=== PATIENT | female | born 1975 | race Caucasian/White ===

== ENCOUNTER 2024-12-14 12:40 | Emergency (ER) | payer SELFPAY ==
[2024-12-14 12:46] VITALS: BP 122/92; PULSE 114; TEMP 37; O2SAT 98; BMI 26.6
--- OUTSIDE RECORDS SUMMARY | 2024-12-14 13:09 | XMS_ITS | Patient Health Record ---
Author Organization [facility] [place] Address [address] [place] [address] Support Name Relationship Address Phone NONE GIVEN Emergency Contact Unknown Unavailabl e Reason For Referral No Information Plan Of Treatment No Information Insurance Providers Payer Name Payer Address Payer Phone Subscriber Number Group Number Insured Name Patient Relationship to Insured Coverage Start Date Coverage End Date [employer] [place] MEDICA[employer] [address] [place], [place] [id number] ELZA CONTRERAS Self - patient is the insured 5
--- OUTSIDE RECORDS SUMMARY | 2024-12-14 13:09 | XMS_ITS | Clinical Summary ---
Author Organization [facility] Address [address] [place] [address] Care Team Providers Care Manager Systems Name Role Phone Unavailable Primary Care Provider Unavailabl e Social History Tobacco Use Types Packs/Day Years Used Date Smoking Tobacco: Never Assessed Comments Unknown Sex and Gender Information Value Date Recorded Sex Assigned at Not on file Legal Sex Female 6:50 PM EDT Gender Identity Not on file Sexual Orientation Not on file Last Filed Vital Signs Vital Sign Reading Time Taken Comments Blood Pressure - - Pulse - - Temperature - - Respiratory Rate - - Oxygen Saturation - - Inhaled Oxygen Concentration - - Weight 85.3 kg (188 lb) 04/19/2022 12:00 PM EST Height 177.8 cm (5' 10 ) 04/19/2022 12:00 PM EST Body Mass Index 26.98 04/19/2022 12:00 PM EST Plan of Treatment Not on file
--- OUTSIDE RECORDS SUMMARY | 2024-12-14 13:09 | XMS_ITS | Clinical Summary ---
Author Organization [place] Address [id number] [address] [place] [address] Care Team Providers Care Carpet Journeyman Name Role Phone Sonido Dunn MD Primary Care Provider [phone] Allergies Active Allergy Reactions Criticality Noted Date Comments Prochlorperazine Itching,GI Disturbance 017 Increase in heart rate, extreme anxiety. Medications vilazodone (VIIBRYD) 10 mg tablet Daily 10/21/2023 Active prazosin (MINIPRESS) 1 mg capsule Daily at bedtime 10/21/2023 Active Active Problems Problem Noted Date Diagnosed Date Leg swelling 06/15/2023 Smoker 06/15/2023 Cellulitis of left lower extremity 06/15/2023 Acute intractable headache 04/09/2018 Immunizations Immunization Administration Dates Next Due Tdap 11/04/2023,03/22/2017 Family History Medical History Relation Name Comments Cancer Mother Coronary artery disease Mother Diabetes Mother Stroke Mother Relation Name Status Comments Father Mother Alive Social History Tobacco Use Types Packs/Day Years Used Date Smoking Tobacco: Every Day Cigarettes 0.5 28 Smokeless Tobacco: Never Tobacco Cessation:Ready to Q uit: Not Asked; Counseling Given: Not Answered Alcohol Use Standard Drinks/Week Comments No 0 (1 standard drink = 0.6 oz pur e alcohol) [facility] Utilities Answer Date Recorded In the past 12 months has th e electric, gas, oil, or water company threatened to shut off services in your home? No 06/15/2023 PRAPARE - Transportation Answer Date Re corded In the past 12 months, has l ack of transportation kept you from medical appointments or from getting medications? No 04/0 07/2023 In the past 12 months, has l ack of transportation kept you from meetings, work, or from getting things needed for daily living? No 06/15/2023 Housing Instability Answer Date Recorde d Are you worried or concerned that in the next two months you may not have stable housing that you own, rent or stay in as a part of a household? No 06/15/2023 Childcare Answer Date Recorded Childcare Unknown 08/21/2018 Employment Answer Date Recorded Employment Unknown 08/21/2018 Hunger Screening Answer Date Recorded Within the past 12 months we worried whether our food would run out before we got money to buy more. Never True 11/04/2023 Within the past 12 months th e food we bought just didn't last and we didn't have money to get more. Never True 11/04/2023 Purpose - Life Answer Date Recorded Purpose and direction in life Unknown Comments No Sex and Gender Information Value Date Recorded Sex Assigned at Not on file Legal Sex Female 11:41 AM EDT Gender Identity Not on file Sexual Orientation Not on file Last Filed Vital Signs Vital Sign Reading Time Taken Comments Blood Pressure 136/87 11/04/2023 12:43 AM EDT Pulse 71 11/04/2023 12:43 AM EDT Temperature 37.3 C (99.1 F) 11/04/2023 12:43 AM EDT Respiratory Rate 20 11/04/2023 12:43 AM EDT Oxygen Saturation 99% 11/04/2023 12:43 AM EDT Inhaled Oxygen Concentration - - Weight 97.5 kg (215 lb) 11/04/2023 12:43 AM EDT Height 177.8 cm (5' 10 ) 11/04/2023 12:43 AM EDT Body Mass Index 30.85 11/04/2023 12:43 AM EDT Plan of Treatment Health Maintenance Due Date Last Done Comments Depression Screening 1989 Adult BMI Screening 11/03/2024 11/04/2023 Tobacco Screening 11/03/2024 11/04/2023 Influenza Vaccine 11/10/2024 12/16/2014 DTaP,Tdap and Td Vaccines (4 - Td or Tdap) 11/03/2033 11/04/2023, 04/19/2020, 03/22/2017 Goals Goal Patient Goal Type Associated Problems Recent Progress Patient-Stated? Author home General Yes Estrella Ryder LSW Note: Evaluation of progress towards goal: feeling better Medical Devices Not on file Insurance [employer] [facility] [employer] Advance Directives * Full Code (Latest Code Status on File) Date Activated Date Inactivated Comments 06/15/2023 6:08 AM 06/16/2023 2:27 PM * Full Code Date Activated Date Inactivated Comments 04/09/2018 5:58 PM 04/10/2018 5:25 PM Care Teams Carpet Journeyman Relationship Specialty Start Date End Date Sonido Dunn MD [facility] [place] [address] PCP - General Family Medicine 11/04/23
--- OUTSIDE RECORDS SUMMARY | 2024-12-14 13:09 | XMS_ITS | Patient Health Record ---
Author Organization [facility] Address [address] [place] [address] Care Team Providers Care Band Edger Name Role Phone Sonido Dunn Primary Care Provider Allergies Allergen (clinical drug ingredient) Drug/Non Drug Allergy documented on EMR Reaction Allergy Type Onset Date Status Compazine rash Drug Allergy Active Reason For Referral No Information Social History Tobacco Use: Social History Observation Description Date Details (start date - stop date) Current Smoker NA - NA Sexual Hx: Question Answer Notes Had sex in the last 12 months (vaginal, oral, or anal)? No Have you ever had an STD? No AUDIT-C (Standard) Question Answer Notes Did you have a drink containing alcohol in the p ast year? No Points 0 Interpretation Negative Tobacco Control (Standard) Question Answer Notes Tobacco use: Current smoker How often do you smoke cigarettes? Some days, bu t not every day How many cigarettes a day do you smoke? 6-10 Are you interested in quitting? Thinking about q uitting Encounters Encounter Location Date Provider Diagnosis [facility] [address] [place] [address] 07/17/2024 Sonido Dunn [facility] [address] [place] [address] 11/18/2024 Sonido Dunn Plan Of Treatment Pending Test Test Name Order Date MM screening mammo BI w/CAD 08/21/2023 Cologuard 08/21/2023 Insurance Providers Payer Name Payer Address Payer Phone Subscriber Number Group Number Insured Name Patient Relationship to Insured Coverage Start Date Coverage End Date [employer] [place] Medicaid [address] [place] [address] [id number] ELZA CONTRERAS Self - patient is the insured 3 [employer] [address] [place] [address] [id number] ELZA CONTRERAS Self - patient is the insured 3 Medical (General) History Medical History History ICD Code 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
--- OUTSIDE RECORDS SUMMARY | 2024-12-14 13:09 | XMS_ITS | Encounter Summary ---
Author Organization [facility] Address [address] [place] [address] Care Team Providers Care Industrial Eng Name Role Phone Pcp, No Primary Care Provider Unavailabl e Pcp, No Primary Care Provider Unavailabl e Source Comments In the event this information is protected by the Federal Confidentiality of Alcohol and Drug AbusePatient Records regulations: The Federal rules restrict any use of the information to criminally investigate or prosecute any alcohol or drug abuse patient.[facility] Encounter Details Date Type Department Care Team (Late st Contact Info) Description 04/07/2013 [facility] [address] [place] [address] Alfonso Ornelas, PA-C [address] [place] [address] Social History Tobacco Use Types Packs/Day Years Used Date Smoking Tobacco: Every Day Cigarettes Alcohol Use Standard Drinks/Week Comments Not Asked 0 (1 standard drink = 0.6 oz pur e alcohol) Comments No Sex and Gender Information Value Date Recorded Sex Assigned at Not on file Legal Sex Female 8:12 AM EST Gender Identity Not on file Sexual Orientation Not on file documented as of this encounter Plan of Treatment Not on file documented as of this encounter Visit Diagnoses Not on filedocumented in this encounter Care Teams Industrial Eng Relationship Specialty Start Date End Date Pcp, No PCP - General 03/03/13 10/09/13 Pcp, No PCP - General Family Medicine 07/10/14 02/08/15 documented as of this encounter
--- OUTSIDE RECORDS SUMMARY | 2024-12-14 13:09 | XMS_ITS | Clinical Summary ---
Author Organization [facility] Address [address], [address] [place] [address] Care Team Providers Care Card Writer Hand Name Role Phone Unavailable Primary Care Provider Unavailabl e Allergies Active Allergy Reactions Criticality Noted Date Comments Prochlorperazine 04/19/2020 Medications acetaminophen (TYLENOL) 325 MG tablet Take 2 tablets by mouth every 6 hours as needed for Pain 30 tablet 04/19/2020 Active ibuprofen (ADVIL;MOTRIN) 600 MG tablet Take 1 tablet by mouth every 6 hours as needed for Pain 30 tablet 04/19/2020 Active Immunizations Immunization Administration Dates Next Due TDaP, ADACEL (age 10y-64y), BOOSTRIX (age 10y+), IM, 0.5mL 04/19/2020 Social History Tobacco Use Types Packs/Day Years Used Date Smoking Tobacco: Never Assessed Interpersonal Safety Domain Source: IP Abuse Scr eening Answer Date Recorded Physical abuse Denies 08/22/2024 Verbal abuse Denies 08/22/2024 Emotional abuse Denies 08/22/2024 Financial abuse Denies 08/22/2024 Sexual abuse Denies 08/22/2024 Comments Unknown Sex and Gender Information Value Date Recorded Sex Assigned at Not on file Legal Sex Female 3:01 PM EST Gender Identity Not on file Sexual Orientation Not on file Last Filed Vital Signs Vital Sign Reading Time Taken Comments Blood Pressure 117/77 08/22/2024 6:37 PM EDT Pulse 67 08/22/2024 6:37 PM EDT Temperature 36.9 C (98.4 F) 08/22/2024 6:37 PM EDT Respiratory Rate 16 08/22/2024 6:37 PM EDT Oxygen Saturation 100% 08/22/2024 6:37 PM EDT Inhaled Oxygen Concentration - - Weight 97.2 kg (214 lb 4.6 oz) 08/22/2024 6:37 P M EDT Height 180.3 cm (5' 11 ) 04/19/2020 3:11 PM EST Body Mass Index 29.89 04/19/2020 3:11 PM EST Plan of Treatment Health Maintenance Due Date Last Done Comments Depression Screen 1989 HIV screen 1992 Hepatitis C screen 09/18/1995 Hepatitis B vaccine (1 of 3 - 19+ 3-dose series) 1996 Pap smear 1998 Cervical cancer screen 09/18/2007 HPV (without or with Pap) 09/18/2007 Breast cancer screen 2017 Lipids 2017 Colonoscopy 2022 Colorectal Cancer Screen 2022 FIT/FOBT: Average risk 2022 Fecal-DNA (Cologuard): Pheba ge risk 2022 Sigmoidoscopy/CT colonography 2022 Flu vaccine (#1) 10/10/2024 12/16/2014 COVID-19 Vaccine (1 - 2023-2 5 season) 2024 DTaP/Tdap/Td vaccine (4 - Td or Tdap) 11/03/2033 11/04/2023, 04/19/2020, 03/22/2017 Hepatitis A vaccine Aged Out No longe r eligible based on patient's age to complete this topic Hib vaccine Aged Out No longer eligi ble based on patient's age to complete this topic Meningococcal (ACWY) vaccine Aged Out No longer eligible based on patient's age to complete this topic Meningococcal B vaccine Aged Out No l onger eligible based on patient's age to complete this topic Pneumococcal 0-49 years Vaccine Aged Out No longer eligible b ased on patient's age to complete this topic Polio vaccine Aged Out No longer elig ible based on patient's age to complete this topic Insurance [employer] [facility] Member Subscriber Plan / Payer (Ef fective 2019-Present) Name:Sissy Gallego Relation to Subscriber:Self Name:Sissy Gallego Payer ID:Not on file Group ID:Not on file Type:Indemnity Address: [address] MEDICAID
[2024-12-14 13:57] LABS: Hematocrit 46.8 % (36.0-48.0); Hemoglobin 15.4 g/dL (12.0-16.0); Immature Granulocytes Abs Auto 0.03 10^3/uL (0.00-0.03); Immature Granulocytes Pct Auto 0.3 % (0.0-0.5); Lymphocytes Absolute Auto 0.7 10^3/uL (1.2-3.8); Mean Corpuscular HGB Conc 32.9 g/dL (29.9-35.2); Mean Corpuscular Hemoglobin 30.7 pg (26.7-34.0); Mean Corpuscular Volume 93.4 fL (81.0-99.0); Platelet Count 228 10^3/uL (150-450); Red Blood Count 5.01 10^6/uL (4.20-5.40); White Blood Count 9.1 10^3/uL (4.0-11.0)
--- NOTE | 2024-12-14 14:04 | CT_ITS ---
The [address] [address] Patient Name: ELZA CONTRERAS MRN: [id number] date: 1975 Sex: F Assigned Patient Location: ER Current Patient Location: ER Accession/Order Number: [id number] Exam Date: 12/14/2024 14:20 Report Date: 12/14/2024 15:06 At the request of: ANAYA DALLAS MD Procedure: CT facial bones wo con MAXILLOFACIAL CT WITHOUT CONTRAST: CLINICAL HISTORY: left mandible swelling COMPARISON: None TECHNIQUE: Spiral axial unenhanced images were obtained through the facial bones. Coronal and sagittal reconstructions were also reviewed. This CT exam was performed using one or more following dose reduction techniques: Automated exposure control, adjustment of the mA and/or kV according to patient size, or use of iterative reconstruction technique. FINDINGS: No nasal bone fracture. Zygomatic arches and pterygoid plates appear intact. Maxilla appears intact. Mandible is intact. No orbital fracture. Intraorbital contents appears unremarkable. Soft tissue swelling involving the left mandibular region. There is associated adjacent presumed reactive lymph nodes. No fluid collection to suggest abscess. Nasopharynx appears unremarkable. CT/CT facial bones wo con IMPRESSION: SOFT TISSUE SWELLING INVOLVING THE LEFT MANDIBULAR REGION WITH ADJACENT PRESUMED REACTIVE LYMPH NODES. NO FLUID COLLECTION TO SUGGEST ABSCESS. NO ACUTE BONY PROCESS. Impression dictated by: Elias Martell Jr., D.O. 12/14/2024 3:06 PM Dictation Location: [place] [address] Electronically authenticated by: [id number] Y Date: 12/14/2024 15:06
[2024-12-14 14:12] LABS: Alanine Aminotransferase 15 U/L (14-59); Albumin Globulin Ratio 0.7; Albumin Level 3.2 g/dL (3.4-5.0); Alkaline Phosphatase 134 U/L (46-116); Anion Gap 10.1; Aspartate Amino Transferase 21 U/L (15-37); Blood Urea Nitrogen 7.0 mg/dL (7.0-18.0); Calcium 8.9 mg/dL (8.5-10.1); Carbon Dioxide 30.1 mmol/L (21.0-32.0); Chloride 102 mmol/L (98-107); Estimated GFR (African America >60 (>=60 mL/min/1.73m^2); Estimated GFR (Non-African Ame >60 (>=60 mL/min/1.73m^2); Globulin 4.4 g/dL; Glucose 113 mg/dL (74-106); Potassium 4.2 mmol/L (3.5-5.1); Sodium 138 mmol/L (136-145); Total Protein 7.6 g/dL (6.4-8.2)
--- NOTE | 2024-12-14 15:24 | ED.GENADUL1 ---
HPI HPI - General Adult General Chief complaint: Skin/Abscess/Foreign Body Stated complaint: L FACIAL PAIN & SWELLING Time Seen by Provider: 12/14/24 13:11 Source: patient Mode of arrival: walk-in Limitations: no limitations History of Present Illness HPI narrative: Patient have a left lower dental pain as well as swelling of the face that developed over the last 24 hours, initially started with pain in the left lower mandible then the swelling she noted this morning, no difficulty breathing no other concern but the patient have a significant swelling in the left side of the face Related Data Previous Rx's ?Medication ?Instructions ?Recorded amoxicillin 875 mg-potassium 1 tab PO Q12H #20 tabs 12/14/24 clavulanate 125 mg tablet naproxen 375 mg tablet 375 mg PO BID PRN pain #20 tabs 12/14/24 Allergies Allergy/AdvReac Type Severity Reaction Status Date / Time prochlorperazine (From Allergy Mild Rash Verified 12/14/24 12:46 Compazine) Opioid HPI Opioid Management Most Recent Opioid Data: Last Pain Scale 8 Today, 12:46 Review of Systems ROS Status of ROS 10 or more systems reviewed and unremarkable except as noted in history and below PFSH PFSH Social History Little interest or pleasure in doing things: not at all Feeling down, depressed, or hopeless: not at all Exam Narrative Exam Narrative: Nurses notes and vital signs reviewed and patient is not hypoxic. General: Well-appearing and in no apparent distress. Skin: Warm, dry, no pallor noted. No rash. Head: Normocephalic, atraumatic. Neck: Supple, lymphadenopathy in the left mandible and the anterior cervical area Very poor dental hygiene: The left lower third molar is decayed and it is partially broken without gum that is tender but the patient does not have any tenderness upon palpation of the floor of the mouth and the patient does not have any airway compromise Eye: Pupils are equal, round and EOMI. No scleral icterus. Ears, Nose, Mouth, and Throat: TM are clear, no nasal mucosal hypertrophy. Oral mucosa is moist, no posterior oropharynx erythema, uvula is mid-line Cardiovascular: Regular Rate and Rhythm without murmur, gallop or rub. Respiratory: No accessory muscle use or respiratory distress. Lungs are clear to auscultation, no wheezing, rales or rhonchi Chest Wall: no tenderness Back: No midline thoracic or lumbar vertebral tenderness. No CVA tenderness Musculoskeletal: normal ROM, no calf or popliteal tenderness, no lower extremity edema/swelling GI: Abdomen is soft, non-distended. Normal bowel sounds. No masses appreciated. No tenderness to palpation. No rebound, guarding, or rigidity noted. Neurological: A&O x4. No cranial nerve dysfunction observed. No truncal ataxia. Moves all extremities. Sensation intact. Psychiatric: Cooperative and interactive. Normal mood and affect. Constitutional Vital Signs, click to edit/add: Last Vital Signs Temp 98.6 F 12/14/24 12:46 Pulse 77 12/14/24 15:41 Resp 12 12/14/24 15:41 BP 132/87 12/14/24 15:41 Pulse Ox 100 12/14/24 15:41 O2 Del Method Room Air 12/14/24 15:41 Course Vital Signs Vital signs: Vital Signs Temperature 98.6 F 12/14/24 12:46 Pulse Rate 114 H 12/14/24 12:46 Respiratory Rate 18 12/14/24 12:46 Blood Pressure 122/92 H 12/14/24 12:46 Pulse Oximetry 98 12/14/24 12:46 Oxygen Delivery Method Room Air 12/14/24 12:46 Temperature 98.6 F 12/14/24 12:46 Pulse Rate 77 12/14/24 15:41 Respiratory Rate 12 12/14/24 15:41 Blood Pressure 132/87 12/14/24 15:41 Pulse Oximetry 100 12/14/24 15:41 Oxygen Delivery Method Room Air 12/14/24 15:41 Medical Decision Making [facility] Narrative Medical decision making narrative: The patient did had a significant swelling in the left side of the face mostly secondary to the lymphadenopathy CBC and chemistry showed no acute pathology and the CAT scan showed that the patient have lymphadenopathy in the left side of the neck mostly submandibular no possible abscess seen on the CAT scan The patient started on ceftriaxone here in the ER discharged home with Augmentin and naproxen Patient instructed about coming back to the ER in case of any worsening of the symptoms The patient is to follow up with primary care physician in next 2-3 days or to return to the emergency department should any of the signs or symptoms worsen or new symptoms develop. The patient agrees with the following Diagnosis and Treatment plan and the patient will be discharged home. Lab Data Labs: Lab Results 12/14/24 Range/Units 13:50 WBC 9.1 (4.0-11.0) 10^3/uL RBC 5.01 (4.20-5.40) 10^6/uL Hgb 15.4 (12.0-16.0) g/dL Hct 46.8 (36.0-48.0) % MCV 93.4 (81.0-99.0) fL MCH 30.7 (26.7-34.0) pg MCHC 32.9 (29.9-35.2) g/dL RDW 13.1 (11.0-15.0) % Plt Count 228 (150-450) 10^3/uL MPV 11.1 (9.5-13.5) fL Neut % (Auto) 81.2 H (43.0-75.0) % Lymph % (Auto) 7.7 L (20.5-60.0) % Centre % (Auto) 9.1 (1.7-12.0) % Eos % (Auto) 1.2 (0.9-7.0) % Baso % (Auto) 0.5 (0.2-2.0) % Neut # (Auto) 7.4 H (1.4-6.5) 10^3/uL Lymph # (Auto) 0.7 L (1.2-3.8) 10^3/uL Centre # (Auto) 0.8 (0.3-0.8) 10^3/uL Eos # (Auto) 0.1 (0.0-0.7) 10^3/uL Baso # (Auto) 0.1 (0.0-0.1) 10^3/uL Abs Immat Gran (auto) 0.03 (0.00-0.03) 10^3/uL Imm/Tot Granulo (auto) 0.3 (0.0-0.5) % Sodium 138 (136-145) mmol/L Potassium 4.2 (3.5-5.1) mmol/L Chloride 102 (98-107) mmol/L Carbon Dioxide 30.1 (21.0-32.0) mmol/L Anion Gap 10.1 BUN 7.0 (7.0-18.0) mg/dL Creatinine 0.75 (0.55-1.02) mg/dL Est GFR ( Amer) >60 (>=60 mL/min/1.73m^2) Est GFR (Non-Af Amer) >60 (>=60 mL/min/1.73m^2) BUN/Creatinine Ratio 9.3 Glucose 113 H (74-106) mg/dL Calcium 8.9 (8.5-10.1) mg/dL Total Bilirubin 1.0 (0.2-1.0) mg/dL AST 21 (15-37) U/L ALT 15 (14-59) U/L Alkaline Phosphatase 134 H (46-116) U/L Total Protein 7.6 (6.4-8.2) g/dL Albumin 3.2 L (3.4-5.0) g/dL Globulin 4.4 g/dL Albumin/Globulin Ratio 0.7 Serum HCG, Qual Negative (NEGATIVE) Discharge Plan Discharge Chief Complaint: Skin/Abscess/Foreign Body Clinical Impression: Dental infection Patient Disposition: Home, Self-Care Time of Disposition Decision: 15:24 Condition: Good Prescriptions / Home Meds: New amoxicillin-pot clavulanate 875-125 mg tablet 1 tab PO Q12H Qty: 20 0RF naproxen 375 mg tablet 375 mg PO BID PRN (Reason: pain) Qty: 20 0RF Print Language: Kinyarwanda Instructions: Dental Abscess (ED) Referrals: Physician,Non-Staff, MD [Primary Care Provider] - 1 week Discharge Date/Time: 12/14/24 15:42
[2024-12-14 15:41] VITALS: BP 132/87; PULSE 77; O2SAT 100
== END 2024-12-14 15:42 | disposition home or self-care (01) ==
PROVIDERS: Emergency Provider Emergency Medicine
DX: K04.7 Periapical abscess without sinus (principal)
CPT/HCPCS: 36415; 70486; 80053; 84703; 85025; 96365; 99285; J0696